=== PATIENT | female | born 1950 | race Caucasian/White ===

== ENCOUNTER 2021-02-06 09:09 | Inpatient (IN) ==
[2021-02-06] MEDS ORDERED: Nitroglycerin 0.4 MG TAB.SUBL SL PRN (16:02)
[2021-02-06] MEDS ORDERED: Fluticasone Propionate Nasal 50 MCG/SPRAY BOTTLE NS PRN (16:02)
[2021-02-06] MEDS ORDERED: *HR* Dextrose 50 % in Water (Vial) 50 ML VIAL IVP PRN (16:05)
[2021-02-06] MEDS ORDERED: Dextrose Gel 15 GM/37.5 ML TUBE PO PRN ×2 (16:05)
[2021-02-06] MEDS ORDERED: D5% in Water 1,000 ML IVC PRN (16:05)
[2021-02-06] MEDS: Insulin LISPRO 300 UNITS/3 ML VIAL SUBQ SCH ×2 (17:53→20:41)
[2021-02-06] MEDS: carvediloL 6.25 MG TABLET PO SCH (17:58)
[2021-02-06] MEDS: *HR* OxyCODONE/APAP 10/325 TABLET PO PRN (17:58)
[2021-02-06] MEDS ORDERED: *HR* Warfarin 2 MG TABLET PO ONE ×2 (18:00)
[2021-02-06] MEDS ORDERED: Warfarin perPT PO PRN (18:00)
[2021-02-06] MEDS ORDERED: polyethylene glycoL 3350 17 GM POWD.PACK PO PRN (19:26)
[2021-02-06] MEDS: Aspirin Enteric Coated 81 MG Tablet PO SCH (20:55)
[2021-02-06] MEDS: Doxycycline 100 MG CAPSULE PO SCH (20:55)
[2021-02-06] MEDS: Loratadine 10 MG TABLET PO SCH (20:55)
[2021-02-06] MEDS: clonazePAM 0.5 MG TABLET PO SCH (20:55)
[2021-02-06] MEDS: *HR* Metformin 500 MG TABLET PO SCH (20:55)
[2021-02-06] MEDS: Sennosides 8.6 MG TABLET PO PRN (21:02)
[2021-02-07 06:09] LABS: Basophils % 0.6 %; Eosinophils # 0.2 K/mcL (0.0-0.6); Hematocrit 33.1 % (35.3-44.9); Hemoglobin 10.6 g/dL (11.5-15.4); Immature Granulocytes % 0.5 % (0-4); Lymphocytes # 1.7 K/mcL (0.6-4.6); Lymphocytes % 27.1 %; Mean Corpuscular Hemoglobin 28.8 pg (28.0-33.3); Mean Corpuscular Volume 89.9 fL (83.0-100.0); Mean Platelet Volume 10.1 fL (9.4-12.4); Monocytes # 0.5 K/mcL (0.0-1.3); Monocytes % 8.5 %; Neutrophils # 3.8 K/mcL (1.6-8.9); Platelet Count 218 K/mcL (140-400); Red Blood Count 3.68 M/mcL (3.82-4.97); Red Cell Distribution Width 14.5 % (11.5-14.5); Segmented Neutrophils % 60.3 %; White Blood Count 6.3 K/mcL (4.3-11.1)
[2021-02-07 06:17] LABS: INR 1.6; Prothrombin Time 17.7 Seconds (9.4-12.1)
[2021-02-07 06:29] LABS: Calcium 8.6 mg/dL (8.6-10.3); Potassium 3.3 mEq/L (3.5-5.1)
[2021-02-07] MEDS: Insulin LISPRO 300 UNITS/3 ML VIAL SUBQ SCH ×4 (07:49→21:33)
[2021-02-07] MEDS: lisinopriL 10 MG TABLET PO SCH (08:43)
[2021-02-07] MEDS: *HR* Metformin 500 MG TABLET PO SCH ×2 (08:43→21:31)
[2021-02-07] MEDS: Doxycycline 100 MG CAPSULE PO SCH ×2 (08:43→20:05)
[2021-02-07] MEDS: carvediloL 6.25 MG TABLET PO SCH ×2 (08:44→17:07)
[2021-02-07] MEDS: clonazePAM 0.5 MG TABLET PO SCH ×2 (08:44→20:06)
[2021-02-07] MEDS: *HR* Amiodarone 200 MG TABLET PO SCH (08:44)
[2021-02-07] MEDS: *HR* OxyCODONE/APAP 10/325 TABLET PO PRN ×2 (08:56→20:07)
[2021-02-07] MEDS ORDERED: *HR* Warfarin 2.5 MG TABLET PO ONE (18:00)
[2021-02-07] MEDS: Loratadine 10 MG TABLET PO SCH (20:05)
[2021-02-07] MEDS: Aspirin Enteric Coated 81 MG Tablet PO SCH (20:05)
[2021-02-08] MEDS: *HR* OxyCODONE/APAP 10/325 TABLET PO PRN ×3 (00:22→20:38)
[2021-02-08 04:56] LABS: INR 1.9
[2021-02-08] MEDS: lisinopriL 10 MG TABLET PO SCH (09:42)
[2021-02-08] MEDS: Doxycycline 100 MG CAPSULE PO SCH ×2 (09:42→20:39)
[2021-02-08] MEDS: clonazePAM 0.5 MG TABLET PO SCH ×2 (09:42→20:38)
[2021-02-08] MEDS: polyethylene glycoL 3350 17 GM POWD.PACK PO PRN ×2 (09:42→20:38)
[2021-02-08] MEDS: *HR* Metformin 500 MG TABLET PO SCH ×2 (09:42→20:38)
[2021-02-08] MEDS: *HR* Amiodarone 200 MG TABLET PO SCH (09:42)
[2021-02-08] MEDS: Insulin LISPRO 300 UNITS/3 ML VIAL SUBQ SCH ×4 (09:43→20:30)
[2021-02-08] MEDS: carvediloL 6.25 MG TABLET PO SCH ×2 (09:43→16:42)
[2021-02-08] MEDS ORDERED: *HR* Warfarin 2.5 MG TABLET PO ONE (18:00)
[2021-02-08] MEDS: Loratadine 10 MG TABLET PO SCH (20:38)
[2021-02-08] MEDS: Aspirin Enteric Coated 81 MG Tablet PO SCH (20:38)
[2021-02-08] MEDS: Sennosides 8.6 MG TABLET PO PRN (20:39)
[2021-02-09] MEDS: *HR* OxyCODONE/APAP 10/325 TABLET PO PRN ×4 (01:02→22:42)
[2021-02-09 04:50] LABS: Basophils % 0.3 %; Eosinophils # 0.2 K/mcL (0.0-0.6); Eosinophils % 3.6 %; Hematocrit 31.8 % (35.3-44.9); Hemoglobin 9.9 g/dL (11.5-15.4); Immature Granulocytes % 0.5 % (0-4); Lymphocytes # 1.3 K/mcL (0.6-4.6); Lymphocytes % 20.3 %; Mean Corpuscular HGB Conc 31.1 g/dL (31.6-35.5); Mean Corpuscular Hemoglobin 28.3 pg (28.0-33.3); Mean Corpuscular Volume 90.9 fL (83.0-100.0); Monocytes # 0.7 K/mcL (0.0-1.3); Monocytes % 10.7 %; Platelet Count 198 K/mcL (140-400); Red Cell Distribution Width 14.7 % (11.5-14.5); Segmented Neutrophils % 64.6 %; White Blood Count 6.2 K/mcL (4.3-11.1)
[2021-02-09 04:53] LABS: INR 2.2
[2021-02-09 05:05] LABS: BUN/Creatinine Ratio 17 (6-26); Blood Urea Nitrogen 17 mg/dL (8-23); Calcium 9.4 mg/dL (8.6-10.3); Carbon Dioxide 32 mEq/L (23-29); Chloride 102 mEq/L (98-107); Glucose 98 mg/dL (70-105); Osmolality,Calculated 292 (280-300); Potassium 4.7 mEq/L (3.5-5.1); Sodium 140 mEq/L (136-145); eGFR For African Americans > 60 (> 60); eGFR For Non-African Americans 54 (> 60)
[2021-02-09 05:18] LABS: Creatine Kinase 39 Units/L (30-223)
[2021-02-09] MEDS: Insulin LISPRO 300 UNITS/3 ML VIAL SUBQ SCH ×4 (07:29→19:51)
[2021-02-09] MEDS: *HR* Amiodarone 200 MG TABLET PO SCH (08:42)
[2021-02-09] MEDS: lisinopriL 10 MG TABLET PO SCH (08:43)
[2021-02-09] MEDS: Doxycycline 100 MG CAPSULE PO SCH ×2 (08:43→20:15)
[2021-02-09] MEDS: clonazePAM 0.5 MG TABLET PO SCH ×2 (08:43→20:15)
[2021-02-09] MEDS: *HR* Metformin 500 MG TABLET PO SCH ×2 (08:43→20:15)
[2021-02-09] MEDS: carvediloL 6.25 MG TABLET PO SCH ×2 (08:43→17:02)
[2021-02-09 09:01] LABS: C-Reactive Protein < 5 mg/L (Less than 10)
[2021-02-09] MEDS: polyethylene glycoL 3350 17 GM POWD.PACK PO PRN (10:26)
[2021-02-09] MEDS ORDERED: *HR* Warfarin 2 MG TABLET PO ONE (18:00)
[2021-02-09] MEDS: Aspirin Enteric Coated 81 MG Tablet PO SCH (20:15)
[2021-02-09] MEDS: Loratadine 10 MG TABLET PO SCH (20:15)
[2021-02-10 05:10] LABS: INR 2.5; Prothrombin Time 28.3 Seconds (9.4-12.1)
[2021-02-10] MEDS: Insulin LISPRO 300 UNITS/3 ML VIAL SUBQ SCH ×4 (07:35→21:42)
[2021-02-10] MEDS: *HR* Amiodarone 200 MG TABLET PO SCH (08:09)
[2021-02-10] MEDS: *HR* Metformin 500 MG TABLET PO SCH ×2 (08:09→21:44)
[2021-02-10] MEDS: clonazePAM 0.5 MG TABLET PO SCH ×2 (08:09→21:48)
[2021-02-10] MEDS: Doxycycline 100 MG CAPSULE PO SCH ×2 (08:09→21:48)
[2021-02-10] MEDS: lisinopriL 10 MG TABLET PO SCH (08:10)
[2021-02-10] MEDS: carvediloL 6.25 MG TABLET PO SCH ×2 (08:10→17:29)
[2021-02-10] MEDS: polyethylene glycoL 3350 17 GM POWD.PACK PO PRN (08:16)
[2021-02-10] MEDS: *HR* OxyCODONE/APAP 10/325 TABLET PO PRN ×2 (08:31→21:45)
[2021-02-10] MEDS ORDERED: *HR* Warfarin 2 MG TABLET PO ONE (18:00)
[2021-02-10] MEDS: Loratadine 10 MG TABLET PO SCH (21:43)
[2021-02-10] MEDS: Sennosides 8.6 MG TABLET PO PRN (21:44)
[2021-02-10] MEDS: Aspirin Enteric Coated 81 MG Tablet PO SCH (21:46)
[2021-02-11 05:59] LABS: INR 2.2; Prothrombin Time 25.2 Seconds (9.4-12.1)
[2021-02-11] MEDS: *HR* OxyCODONE/APAP 10/325 TABLET PO PRN ×2 (06:31→20:53)
[2021-02-11] MEDS: clonazePAM 0.5 MG TABLET PO SCH ×2 (08:49→20:54)
[2021-02-11] MEDS: *HR* Metformin 500 MG TABLET PO SCH ×2 (08:49→20:56)
[2021-02-11] MEDS: Doxycycline 100 MG CAPSULE PO SCH ×2 (08:50→20:55)
[2021-02-11] MEDS: *HR* Amiodarone 200 MG TABLET PO SCH (08:50)
[2021-02-11] MEDS: carvediloL 6.25 MG TABLET PO SCH ×2 (08:50→17:00)
[2021-02-11] MEDS: lisinopriL 10 MG TABLET PO SCH (08:50)
[2021-02-11] MEDS: Insulin LISPRO 300 UNITS/3 ML VIAL SUBQ SCH ×4 (08:50→20:34)
[2021-02-11] MEDS ORDERED: *HR* Warfarin 2 MG TABLET PO ONE (18:00)
[2021-02-11] MEDS: Aspirin Enteric Coated 81 MG Tablet PO SCH (20:54)
[2021-02-11] MEDS: Loratadine 10 MG TABLET PO SCH (20:55)
[2021-02-12] MEDS: *HR* OxyCODONE/APAP 10/325 TABLET PO PRN ×2 (06:45→17:34)
[2021-02-12 07:06] LABS: INR 2.2
[2021-02-12] MEDS: Insulin LISPRO 300 UNITS/3 ML VIAL SUBQ SCH ×3 (07:53→17:35)
[2021-02-12] MEDS: clonazePAM 0.5 MG TABLET PO SCH ×2 (08:31→20:14)
[2021-02-12] MEDS: lisinopriL 10 MG TABLET PO SCH (08:31)
[2021-02-12] MEDS: carvediloL 6.25 MG TABLET PO SCH ×2 (08:31→17:34)
[2021-02-12] MEDS: *HR* Metformin 500 MG TABLET PO SCH ×2 (08:31→20:17)
[2021-02-12] MEDS: Doxycycline 100 MG CAPSULE PO SCH ×2 (08:31→20:14)
[2021-02-12] MEDS: *HR* Amiodarone 200 MG TABLET PO SCH (08:31)
[2021-02-12] MEDS ORDERED: *HR* Warfarin 2 MG TABLET PO ONE (18:00)
[2021-02-12] MEDS: Sennosides 8.6 MG TABLET PO PRN (20:12)
[2021-02-12] MEDS: Loratadine 10 MG TABLET PO SCH (20:14)
[2021-02-12] MEDS: Aspirin Enteric Coated 81 MG Tablet PO SCH (20:16)
[2021-02-13] MEDS: Insulin LISPRO 300 UNITS/3 ML VIAL SUBQ SCH ×2 (01:43→08:26)
[2021-02-13] MEDS: *HR* OxyCODONE/APAP 10/325 TABLET PO PRN (05:03)
[2021-02-13 05:59] LABS: INR 2.3; Prothrombin Time 26.5 Seconds (9.4-12.1)
[2021-02-13 07:48] VITALS: BP 131/71; PULSE 80; RESP 17; TEMP 97.3; O2SAT 97
[2021-02-13] MEDS: Doxycycline 100 MG CAPSULE PO SCH (08:49)
[2021-02-13] MEDS: lisinopriL 10 MG TABLET PO SCH (08:50)
[2021-02-13] MEDS: carvediloL 6.25 MG TABLET PO SCH (08:50)
[2021-02-13] MEDS: clonazePAM 0.5 MG TABLET PO SCH (08:50)
[2021-02-13] MEDS: *HR* Amiodarone 200 MG TABLET PO SCH (08:50)
[2021-02-13] MEDS: *HR* Metformin 500 MG TABLET PO SCH (08:51)
[2021-02-13] MEDS ORDERED: *HR* Warfarin 2 MG TABLET PO ONE (18:00)
== END 2021-02-13 12:05 | disposition home health service (06) | DRG 945 ==
LOC: INPGRE 15:52
PROVIDERS: ADMIT Family Medicine; ATTEND Family Medicine